=== PATIENT | male | born 1995 | race Caucasian/White ===

== ENCOUNTER 2019-05-26 07:08 | Emergency (ER) | payer BC, SELFPAY ==
[2019-05-26 07:09] VITALS: BP 119/77; PULSE 72; RESP 18; TEMP 37; O2SAT 99; BMI 30.4
--- NOTE | 2019-05-26 07:28 | ED.DCSUM_ITS ---
History of Present Illness Chief Complaint: Sore Throat Informant: Patient Onset: Yesterday Context: Gradual Onset Current Severity: Mild Maximum Severity: Mild Narrative: Patient present secondary to sore throat that he noticed yesterday morning. Pain is worse on the left. He does have exudates noted. He denies fever or chills. Has had mild cough. Patient states he was seen at [facility] yesterday where had a rapid strep that was negative. Past Medical History - Allergies and Home Meds Allergies/Adverse Reactions: Allergies No Known Allergies Allergy (Verified 05/26/19 07:11) Past Medical History: None Lives: With Family Review of Systems General: Denies: Chills, Fever Eyes: Denies: Visual changes - bilaterally ENT: Reports: Sore throat. Denies: Bilateral ear pain Cardiovascular: Denies: Chest pain Respiratory: Reports: Cough - Mild cough, Sputum. Denies: Dyspnea Gastrointestinal: Denies: Abdominal pain, Nausea, Vomiting, Diarrhea Genitourinary: Denies: Dysuria Musculoskeletal: Denies: Extremity Pain Skin: Denies: Rash Neurological: Denies: Headache Allergy: Denies: Uticaria Physical Exam Vital Signs/Narrative: Vital Signs Temp Pulse Resp BP Pulse Ox 05/26/19 07:09 98.6 F 72 18 119/77 99 Inital Vital Signs reviewed: Yes General: Well nourished, Well developed Head: Normocephalic ENT: Moist mucous membranes, TM's clear, - - 2-3+ tonsils, left greater than right. Exudate noted on the left tonsil. Neck: - - Mild anterior cervical lymphadenopathy. Cardiovascular: Regular rate, Regular rhythm Respiratory: No distress, CTA bilaterally Abdomen: Soft, Nontender Extremities: Nontender Skin: Normal color, No rash Neurological: Alert, Oriented x3 Psychological: Normal affect Diagnostic/Tx/Re-eval - Medical Decision Making She does have multiple of the center criteria. My suspicion is strep culture may very well return positive. He will be covered with antibiotics. ED Disposition - Plan for ED Patient: Disposition: Home or Assisted Living Diagnosis: Pharyngitis Instructions: ED Strep Pharyngitis Poss Prescriptions: Azithromycin [Zithromax] 500 mg PO DAILY #4 tab Transmission Status: Pending to [facility]/pharmacy #[id number]
[2019-05-26] MEDS: Azithromycin 250 MG Tablet 500 MG PO (07:50)
== END 2019-05-26 07:51 | disposition home or self-care (01) ==
LOC: ED 07:47
PROVIDERS: Emergency Provider Emergency Medicine
DX: J02.9 Acute pharyngitis, unspecified (principal)
CPT/HCPCS: 99283

== ENCOUNTER 2019-10-04 16:25 | Emergency (ER) | payer BC, SELFPAY ==
[2019-07-14 17:06] VITALS: BMI 30.4
[2019-10-04 16:25] VITALS: BP 122/74; PULSE 83; RESP 18; TEMP 36.2; O2SAT 99; BMI 30.3
--- NOTE | 2019-10-04 17:04 | RAD_ITS ---
STUDY: X-RAY CHEST REASON FOR EXAM: Male, 23 years old. SINCE THURSDAY HAS HAD PRODUCTIVE COUGH, SOB, CHILLS, SORE THROAT AND HEADACHE TECHNIQUE: Single AP portable view of the chest. COMPARISON: None. FINDINGS: The lungs are clear and expanded. There is no demonstrated pleural abnormality. Normal size heart. Normal mediastinum and azul. Normal visualized pulmonary arteries. Normal visualized aortic arch and descending thoracic aorta. Normal visualized thoracic spine. Normal visualized ribs, clavicles, and shoulders. There is no demonstrated abnormality of the visualized soft tissue structures of the upper abdomen. RAD/Chest 1 View (Portable) IMPRESSION: Normal x-ray examination of the chest. Electronically Signed: Ritesh Landis MD at 17:44 EDT , Service support ,
--- NOTE | 2019-10-04 17:21 | ED.VISSUMM ---
- ER Visit Summary Date of Service: 10/04/19 Chief Complaint: Cough History of Present Illness: The patient is a 23 M with no primary care physician. He reports his cough began 2 days ago. Is productive yellow/green sputum without blood. States he has subjective fever and chills. Has a sore throat is 10 of 10 severity. He reports he has mild shortness of breath. He has been nausea and had one episode of diarrhea. No blood in stools or black tarry stools. Denies any abdominal pain. He reports he is kind of has a headache. Patient works in fast food. He does wear a mask. Is not have any known sick contacts. However, he reports that I have all the symptoms of COVID. Physical Examination: Vitals: Stable. Afebrile. General: Well-nourished and well-developed. Head: Normocephalic atraumatic. HEENT: Pharyngeal erythema. No tonsillar exudate or enlargement. No cervical lymphadenopathy. Neck: Supple, no lymphadenopathy. No JVD. Nontender. Cardiovascular: Regular rate and rhythm. No murmurs. Respiratory: No respiratory distress. Clear to auscultation bilaterally. Abdominal: Soft, nontender, nondistended, normal bowel sounds. No guarding, rebound, or peritoneal signs. Back: Nontender. Extremities: Nontender, no edema. Skin: Normal color, no rash. Neurologic: Alert and oriented ?3. Cranial nerves II through XII are intact. Normal strength and sensation. Psych: Normal affect. Test Results: Clinical Impression(s) from Imaging Studies Chest X-Ray 10/04/19 17:04 IMPRESSION: Normal x-ray examination of the chest. Electronically Signed: Ritesh Landis MD at 17:44 EDT , Service support , Emergency Department Course and Treatment: Patient did have a COVID test obtained. He is resting comfortably. He is not hypoxic. Treatment Plan: Patient is instructed to quarantine for the next 10 to 14 days. He is given a note for work. Follow-up with Dr. John in 10 to 14 days if not improving. Return to the emergency department for any worsening symptoms. Disposition: To home in improved and stable condition. Impression: 1. URI, possible COVID-19 infection. This note was generated with [employer] dictation software. It may contain incorrect words, spelling, and punctuation that were not noted in review of the chart prior to signing ED Disposition - Plan for ED Patient: Instructions: ED Upper Resp Infec No Abx Tx Referrals: Annalisa John MD [STAFF PHYSICIAN] - 10-14 Days if not better
[2019-10-04 17:25] VITALS: O2SAT 99
== END 2019-10-04 18:14 | disposition home or self-care (01) ==
PROVIDERS: Emergency Provider Emergency Medicine
DX: J06.9 Acute upper respiratory infection, unspecified (principal); F17.290 Nicotine dependence, other tobacco product, uncomplicated
CPT/HCPCS: 71045; 87635; 94799; 99281; 99282; U0003